=== PATIENT | female | born 1995 | race Two or more races ===

== ENCOUNTER 2021-12-28 03:12 | Emergency (ER) | payer OTHER ==
[2021-12-28 03:19] VITALS: RESP 18
--- NOTE | 2021-12-28 03:27 | ED ---
Overdose HPI - General Chief Complaint: Overdose Stated Complaint: Overdose Time Seen by Provider: 12/28/21 03:25 Source: patient, EMS, RN notes reviewed, old records reviewed Mode of arrival: EMS Limitations: no limitations - History of Present Illness Initial Comments: This is a 18-year-old female for accidental drug overdose. Heroin. Patient responded to Narcan from boyfriend. Patient currently a little bit nauseous little bit anxious otherwise feeling well. No medical history takes no medications MD Complaint: accidental overdose -: minutes(s) Intent: other (Wanted to get high) How Overdose Was Discovered: family/friend present at time, called 911 Context: Intentional Overdose: drug/ETOH problems Context: Accidental Overdose: wanted to get high Associated Symptoms: other (none) Treatments Prior to Arrival: none Review of Systems ROS Statement: Those systems with pertinent positive or pertinent negative responses have been documented in the HPI. ROS Other: All systems not noted in ROS Statement are negative. Past Medical History Past Medical History: No Reported History Additional Past Surgical History / Comment(s): Right foot surgery. Past Psychological History: Anxiety, Bipolar, Depression Smoking Status: Current every day smoker Past Alcohol Use History: Occasional Past Drug Use History: Cocaine, Heroin, IV Drug Use, Marijuana General Exam General appearance: alert, in no apparent distress, anxious Head exam: Present: atraumatic, normocephalic, normal inspection Eye exam: Present: normal appearance, PERRL, EOMI. Absent: scleral icterus, conjunctival injection, periorbital swelling ENT exam: Present: normal exam, mucous membranes moist Neck exam: Present: normal inspection. Absent: tenderness, meningismus, lymphadenopathy Respiratory exam: Present: normal lung sounds bilaterally. Absent: respiratory distress, wheezes, rales, rhonchi, stridor Cardiovascular Exam: Present: normal rhythm, tachycardia, normal heart sounds. Absent: systolic murmur, diastolic murmur, rubs, gallop, clicks GI/Abdominal exam: Present: soft, normal bowel sounds. Absent: distended, ten derness, guarding, rebound, rigid Extremities exam: Present: normal inspection, full ROM, normal capillary refill. Absent: tenderness, pedal edema, joint swelling, calf tenderness Back exam: Present: normal inspection Neurological exam: Present: alert, oriented X3, CN II-XII intact Psychiatric exam: Present: normal affect, normal mood Skin exam: Present: warm, dry, intact, normal color. Absent: rash Course Vital Signs 12/28/21 03:13 Temperature 98.9 F Pulse Rate 117 H Respiratory 18 Rate Blood Pressure 109/87 O2 Sat by Pulse 100 Oximetry - Reevaluation(s) Reevaluation #1: 12/28/21 04:38 Medical record is reviewed Reevaluation #2: 12/28/21 04:38 Patient without significant current complaint Reevaluation #3: 12/28/21 04:38 Patient informed results and risks of using heroin, questions answered Medical Decision Making - Medical Decision Making 26 female to the emergency department for alleged overdose requiring Narcan. Also from EMS. Patient awake and alert throughout ER stay can be discharged home Disposition Clinical Impression: Accidental drug overdose Disposition: HOME SELF-CARE Condition: Fair Instructions (If sedation given, give patient instructions): Adult Overdose (ED) Is patient prescribed a controlled substance at d/c from ED?: No Referrals: None,Stated [Primary Care Provider] - 1-2 days
[2021-12-28 11:34] VITALS: BP 117/78; PULSE 93; TEMP 98.2
== END 2021-12-28 11:35 | disposition home or self-care (01) ==
LOC: EC 03:12
DX: T40.1X1A Poisoning by heroin, accidental (unintentional), initial encounter (principal); F31.9 Bipolar disorder, unspecified; F41.9 Anxiety disorder, unspecified; F17.200 Nicotine dependence, unspecified, uncomplicated; F12.90 Cannabis use, unspecified, uncomplicated
CPT/HCPCS: 99284

== ENCOUNTER → 2022-04-13 | Outpatient (CLI) | payer OTHER ==
--- NOTE | 2022-04-13 13:56 | US ---
EXAMINATION TYPE: Transabdominal DATE OF EXAM: 04/13/2022 12:39 PM COMPARISON: NONE CLINICAL HISTORY: Confirm dates O36.80X0. confirm dates EXAM PERFORMED: Transabdominal (TA) EXAM MEASUREMENTS: GESTATIONAL AGE / DATING Physician Established: Not yet established Dates by LMP: LMP unknown Dates by First Scan: No previous this is first scan Dates by Current Scan for: (14 weeks/2 days) EDC: 10/10/2022 MATERNAL ANATOMY Uterus: 14.3 x 8.5 x 10.5 cm Right Ovary: obscured by bowel gas Left Ovary: obscured by bowel gas Post CDS / Adnexa: wnl Presence of free fluid: no Presence of corpus luteal cyst: no Presence of subchorionic bleed: no GESTATION / SURVEY CRL: 8.4 cm (14 weeks/2 days) Heart Rate: 146 bpm Rhythm: Normal IUP: Viable IUP Beta HcG (if available): Not available at this time Heterogeneous anteverted uterus. Single live intrauterine gestation as gestational sac and pole are present. No yolk sac. No free fluid. Neither ovary is seen. No suspicious adnexal masses are noted. IMPRESSION: Single live intrauterine gestation. Mean crown-rump length 8.4 cm corresponding to 14 wee k 2 day old fetus.
== END | disposition home or self-care (01) ==
LOC: RADUSWWP 12:03
PROVIDERS: ATTEND Obstetrics & Gynecology
DX: O36.80X0 Pregnancy with inconclusive fetal viability, not applicable or unspecified (principal); Z3A.14 14 weeks gestation of pregnancy
CPT/HCPCS: 76801

== ENCOUNTER 2022-10-13 06:00 | Inpatient (IN) | payer OTHER ==
[2022-10-13] MEDS ORDERED: LIDOCAINE 0.5% (PF) 5 MG/ML (50 ML SDV) SQ PRN (06:17)
[2022-10-13] MEDS ORDERED: TERBUTALINE 1 MG/ML VIAL SQ PRN (06:17)
[2022-10-13] MEDS ORDERED: OXYTOCIN 30 UNITS/500 ML NS 30 UNIT in SALINE 1 500ML.BAG IV SCH ×2 (06:30→17:45)
[2022-10-13] MEDS: LACTATED RINGERS 1,000 ML IV SCH ×3 (06:48→14:07)
[2022-10-13 07:11] LABS: Basophils # (A) 0.1 k/uL (0-0.2); Basophils % (A) 1 %; Eosinophils # (A) 0.1 k/uL (0-0.7); Eosinophils % (A) 1 %; HCT 33.7 % (34.0-46.0); HGB 11.6 gm/dL (11.4-16.0); Lymphocytes # (A) 1.8 k/uL (1.0-4.8); Lymphocytes % (A) 19 %; MCHC 34.3 g/dL (31.0-37.0); MCV 93.2 fL (80.0-100.0); Mean Platelet Volume 9.4; Monocytes # (A) 0.5 k/uL (0-1.0); Monocytes % (A) 5 %; Neutrophils # (A) 7.3 k/uL (1.3-7.7); Neutrophils % (A) 74 %; Platelet Count 172 k/uL (150-450); RBC 3.62 m/uL (3.80-5.40); RDW 13.1 % (11.5-15.5); WBC 9.8 k/uL (3.8-10.6)
[2022-10-13 07:31] LABS: Amphetamine Screen,Urine Not Detected (NotDetected); Barbiturate Screen,Urine Not Detected (NotDetected); Benzodiazepines Screen,Urine Not Detected (NotDetected); Cocaine Screen,Urine Not Detected (NotDetected); Methadone Screen, Urine Not Detected (NotDetected); Opiate Screen,Urine Not Detected (NotDetected); Oxycodone Screen, Urine Not Detected (NotDetected); Phencyclidine Screen,Urine Not Detected (NotDetected); Tricyclic Antidepressant,Urine Not Detected (NotDetected); Urn Cannabinoid Scrn Not Detected (NotDetected)
[2022-10-13] MEDS ORDERED: fentaNYL (PF) 50 MCG/ML 5 ML AMP ONE (13:46)
[2022-10-13] MEDS ORDERED: SODIUM CHLORIDE 0.9% 100 ML BAG ONE (13:46)
[2022-10-13] MEDS ORDERED: ROPIVACAINE 5 MG/ML 20 ML AMPULE ONE (13:46)
[2022-10-13] MEDS ORDERED: METHYLERGONOVINE 0.2 MG/ML 1 ML AMP IM ONE (17:20)
--- NOTE | 2022-10-13 17:39 | P.HPOB ---
History of Present Illness H&P Date: 10/13/22 Chief Complaint: induction of labor 26 year old presents at 40 weeks 3 days for induction of labor. Her cervix is 2/80/-2 and she is praneeth irregularly. heart tones 135 with moderate variability and reactive. Review of Systems All systems: negative Constitutional: Denies chills, Denies fever Eyes: denies blurred vision, denies pain Ears, nose, mouth and throat: Denies headache, Denies sore throat Cardiovascular: Denies chest pain, Denies shortness of breath Respiratory: Denies cough Gastrointestinal: Denies abdominal pain, Denies diarrhea, Denies nausea, Denies vomiting Genitourinary: Denies dysuria, Denies hematuria Musculoskeletal: Denies myalgias Integumentary: Denies pruritus, Denies rash Neurological: Denies numbness, Denies weakness Psychiatric: Denies anxiety, Denies depression Endocrine: Denies fatigue, Denies weight change Past Medical History Past Medical History: No Reported History History of Any Multi-Drug Resistant Organisms: None Reported Additional Past Surgical History / Comment(s): Right foot surgery, right hip, bone marrow transplant, endometri-surgery Past Anesthesia/Blood Transfusion Reactions: No Reported Reaction Smoking Status: Current every day smoker Past Alcohol Use History: Occasional Past Drug Use History: Cocaine, Heroin, IV Drug Use, Marijuana Medications and Allergies Home Medications Medication Instructions Recorded Confirmed Type Docusate [Colace] 1 tab PO BID 10/13/22 10/13/22 History Vit No.179/Iron/Folic 1 tab PO DAILY 10/13/22 10/13/22 History [ Tablet] buprenorphine HCL [Subutex] 10/13/22 History valACYclovir HCL [Valtrex] 1 tab PO BID 10/13/22 10/13/22 History Allergies Allergy/AdvReac Type Severity Reaction Status Date / Time Iodinated Contrast Media Allergy See Verified 12/28/21 08:29 comments surgical glue Allergy Rash/Hives Uncoded 10/13/22 06:51 Exam Osteopathic Statement: *. No significant issues noted on an osteopathic structural exam other than those noted in the History and Physical/Consult. Vital Signs Temp Pulse Resp BP Pulse Ox 10/13/22 06:15 97.9 F 98 16 128/85 97 Intake and Output 10/13/22 10/13/22 10/13/22 06:59 14:59 22:59 Intake Total 1000 Output Total 800 Balance 1000 -800 Intake: IV 1000 Output: Urine 800 Straight 800 Other: # Voids 3 Weight 83.915 kg Heart: Regular rate and rhythm Lungs: Clear to auscultation bilaterally Abdomen: Soft, nontender Extremities: Negative Homans sign Results Result Diagrams: 10/13/22 06:20 Abnormal Lab Results - Last 24 Hours (Table) 10/13/22 Range/Units 06:20 RBC 3.62 L (3.80-5.40) m/uL Hct 33.7 L (34.0-46.0) % Assessment and Plan (1) Encounter for induction of labor Current Visit: Yes Status: Acute Code(s): Z34.90 - ENCNTR FOR SUPRVSN OF NORMAL , UNSP, UNSP TRIMESTER SNOMED Code(s): 752187495 (2) complicated by subutex maintenance, antepartum Current Visit: Yes Status: Acute Code(s): O99.320 - DRUG USE COMPLICATING , UNSPECIFIED TRIMESTER; F11.20 - OPIOID DEPENDENCE, UNCOMPLICATED SNOMED Code(s): 03297430 Plan: 1. Induction of labor with amniotomy and Pitocin 2. Anticipate normal vaginal delivery
[2022-10-13] MEDS ORDERED: HYDROCORTISONE 2.5% RECTAL CREAM 30 GM TUBE RECTAL PRN (17:42)
[2022-10-13] MEDS ORDERED: LANOLIN CREAM 5 GM TUBE TOPICAL PRN (17:42)
[2022-10-13] MEDS ORDERED: diphenhydrAMINE 50 MG/ML 1 ML VIAL IVP PRN ×2 (17:42)
[2022-10-13] MEDS ORDERED: SIMETHICONE 80 MG CHEWABLE PO PRN (17:42)
[2022-10-13] MEDS ORDERED: diphenhydrAMINE 50 MG CAP PO PRN (17:42)
[2022-10-13] MEDS ORDERED: ZOLPIDEM 5 MG TAB PO PRN (17:42)
[2022-10-13] MEDS ORDERED: BENZOCAINE/MENTHOL SPRAY 1 GM/SPRAY AEROSOL TOPICAL PRN (17:42)
[2022-10-13] MEDS ORDERED: diphenhydrAMINE 25 MG CAP PO PRN (17:42)
--- NOTE | 2022-10-13 17:42 | P.PROBDLV ---
Vaginal Delivery Note - . Vaginal Delivery Note: 26 year old presents at 40 weeks 3 days for induction of labor. Her cervix is 2/80/-2 and she is praneeth irregularly. heart tones 135 with moderate variability and reactive. Pitocin was started and amniotomy performed at 7:15 AM and clear fluid noted. She was too uncomfortable and did use some nitrous for short period time. She then got an epidural. Her cervix is completely dilated by 1711. She pushed, delivered a viable female infant over intact perineum under epidural anesthesia at 1716. Head delivered OA, nuchal cord 1 easily reduced, anterior shoulder delivered gentle downward guidance of the posterior shoulder and rest of body. Nose and mouth bulb suctioned, cord clamped and cut, infant placed mother's abdomen. Apgars 9, 9, weight 7 lbs. 8 oz. Placenta delivered spontaneously, intact with three-vessel cord at 1718. Vagina, cervix, perineum inspected. First-degree midline laceration and bilateral labial lacerations were repaired with 3-0 Vicryl. Patient started to have some uterine atony so uterine massage was performed and Pitocin had Dimas been added to the IV, 0.2 of Methergine was given IM. The stop the bleeding and controlled the atony well. EBL 300 mL Mother and baby in stable condition.
[2022-10-13] MEDS: IBUPROFEN 600 MG TAB PO PRN (18:00)
[2022-10-13] MEDS: ACETAMINOPHEN TAB 325 MG TAB PO PRN (19:28)
[2022-10-14] MEDS: IBUPROFEN 600 MG TAB PO PRN ×4 (00:34→23:25)
[2022-10-14 08:00] LABS: Basophils % (A) 0 %; Eosinophils # (A) 0.1 k/uL (0-0.7); Eosinophils % (A) 1 %; HCT 31.2 % (34.0-46.0); HGB 10.5 gm/dL (11.4-16.0); Lymphocytes # (A) 2.5 k/uL (1.0-4.8); Lymphocytes % (A) 18 %; MCH 31.9 pg (25.0-35.0); MCHC 33.7 g/dL (31.0-37.0); MCV 94.9 fL (80.0-100.0); Mean Platelet Volume 9.7; Monocytes # (A) 0.6 k/uL (0-1.0); Monocytes % (A) 5 %; Neutrophils # (A) 10.2 k/uL (1.3-7.7); Neutrophils % (A) 75 %; Platelet Count 176 k/uL (150-450); RBC 3.29 m/uL (3.80-5.40); RDW 13.1 % (11.5-15.5); WBC 13.5 k/uL (3.8-10.6)
[2022-10-14] MEDS: SENNOSIDES-DOCUSATE SODIUM 1 EACH TAB PO SCH ×3 (08:22→19:59)
[2022-10-14] MEDS: ACETAMINOPHEN TAB 325 MG TAB PO PRN ×2 (08:22→19:57)
--- NOTE | 2022-10-14 09:46 | P.PNOBGVD ---
Subjective - Subjective Principal diagnosis: Status post normal vaginal delivery day #1 Interval history: Patient seen and examined. Denies nausea, vomiting, chest pain, shortness of breath or any calf pain. Patient reports: Reports appetite normal, Reports voiding normally, Reports pain well controlled, Reports ambulating normally [place]: doing well Objective - Latest Vital Signs Latest vital signs: Vital Signs Temp Pulse Resp BP Pulse Ox 10/14/22 08:25 97.8 F 58 L 14 126/75 10/14/22 04:00 98 F 90 16 100/67 99 10/14/22 00:00 98.4 F 94 16 122/81 97 10/13/22 20:00 98.3 F 103 H 16 126/80 98 10/13/22 19:30 98.3 F 104 H 16 126/81 97 10/13/22 19:00 98 17 128/78 10/13/22 18:30 100 17 131/76 10/13/22 18:15 86 17 128/65 10/13/22 18:00 96 17 133/66 10/13/22 17:45 98.6 F 103 H 17 144/79 10/13/22 17:30 88 17 122/74 Intake and Output 10/13/22 10/14/22 10/14/22 22:59 06:59 14:59 Intake Total 1020.6 600 Output Total 1295 Balance -274.4 600 Intake: IV 1000 Intake, IV Titration 20.6 Amount Oxytocin 30 Units/500 ml 20.6 Ns 30 unit In Saline 1 500ml.bag @ Per Protocol IV .Q0M [facility] Rx#:[id number] Oral 600 Output: Urine 1100 Straight 800 Output, Quantitative 195 Blood Loss Other: # Voids 1 - Exam Lungs: bilateral: normal Chest: Normal S1, Normal S2 Extremities: Present: normal Abdomen: Present: normal appearance, soft Uterus: Present: normal, firm - Labs Labs: Abnormal Lab Results - Last 24 Hours (Table) 10/14/22 Range/Units 07:34 WBC 13.5 H (3.8-10.6) k/uL RBC 3.29 L (3.80-5.40) m/uL Hgb 10.5 L (11.4-16.0) gm/dL Hct 31.2 L (34.0-46.0) % Neutrophils # 10.2 H (1.3-7.7) k/uL Assessment and Plan (1) Encounter for induction of labor Current Visit: Yes Status: Resolved Code(s): Z34.90 - ENCNTR FOR SUPRVSN OF NORMAL , UNSP, UNSP TRIMESTER SNOMED Code(s): 965776112 (2) complicated by subutex maintenance, antepartum Current Visit: Yes Status: Resolved Code(s): O99.320 - DRUG USE COMPLICATING , UNSPECIFIED TRIMESTER; F11.20 - OPIOID DEPENDENCE, UNCOMPLICATED SNOMED Code(s): 03915410 (3) Normal vaginal delivery Current Visit: Yes Status: Acute Code(s): O80 - ENCOUNTER FOR FULL-TERM UNCOMPLICATED DELIVERY SNOMED Code(s): 31527363 Plan: 1. Continue care
[2022-10-14] MEDS: LACTATED RINGERS 1,000 ML IV SCH (20:00)
[2022-10-15] MEDS: LACTATED RINGERS 1,000 ML IV SCH ×2 (05:55→10:42)
[2022-10-15] MEDS: IBUPROFEN 600 MG TAB PO PRN (07:59)
[2022-10-15] MEDS: SENNOSIDES-DOCUSATE SODIUM 1 EACH TAB PO SCH (07:59)
--- NOTE | 2022-10-15 09:07 | P.DS ---
Providers Date of admission: 10/13/22 06:09 Expected date of discharge: 10/15/22 Attending physician: Alina Hannah Primary care physician: Stated None Hospital Course: This is a 26-year-old female 1 para 0 at 40-3/7 weeks who presented for induction of labor. Please see dictated history and physical for details of patient's admission. She delivered vaginally a viable female infant on 2021 with scores of 9 at 1 minute and 9 at 5 minutes and infant weight of 7 lbs. 8 oz. Her course has been essentially uncomplicated. She does state that she has a history of constipation and has still not had a bowel movement yet. She is taking stool softeners. Pain is fairly well controlled. Vital signs are stable. Abdomen is soft with fundus firm and nontender. Extremities show negative Homans. Impression is status post vaginal delivery day #2. Plan is to discharge home today. Routine instructions are given. She is advised to follow up with Dr. Hannah in the office in 6 weeks. She is advised to call the office if she has any further questions or concerns prior to her appointment time. She will be given a prescription for ibuprofen. Procedures: Oxytocin induction of labor Spontaneous vaginal delivery of a viable female infant on 10/13/2022 Patient Condition at Discharge: Stable Plan - Discharge Summary New Discharge Prescriptions: New Ibuprofen [Motrin] 600 mg PO Q6HR PRN #30 tab PRN Reason: Mild Pain (Scale 1 To 3) Sennosides-Docusate Sodium [Senokot-S] 2 each PO BID@0800,2000 #20 tab No Action Vit No.179/Iron/Folic [ Tablet] 1 tab PO DAILY valACYclovir HCL [Valtrex] 1 tab PO BID Docusate [Colace] 1 tab PO BID buprenorphine HCL [Subutex] Discharge Medication List Docusate [Colace] 1 tab PO BID 10/13/22 [History] Vit No.179/Iron/Folic [ Tablet] 1 tab PO DAILY 10/13/22 [History] buprenorphine HCL [Subutex] 10/13/22 [History] valACYclovir HCL [Valtrex] 1 tab PO BID 10/13/22 [History] Ibuprofen [Motrin] 600 mg PO Q6HR PRN #30 tab 10/14/22 [Rx] Sennosides-Docusate Sodium [Senokot-S] 2 each PO BID@0800,1999 #20 tab 10/15/22 [Rx] Follow up Appointment(s)/Referral(s): Alina Hannah DO [Doctor of Osteopathic Medicine] - 11/30/22 11:15 am Activity/Diet/Wound Care/Special Instructions: Instructions 1. Do not begin any exercise program for 3 weeks. 2. Do not resume sexual relations for 3 weeks or longer if uncomfortable. 3. You may take tub baths or showers at any time. 4. You may use tampons if desired after 3 weeks. 5. Keep the area of episiotomy (stitches) clean and dry. 6. If you are not nursing, wear a good fitting, supportive bra during the day and limit fluid intake for at least 1 week to prevent breast engorgement. 7. Call the office, [phone], within the next week to make appointment for your 6 week checkup if it has not already been made. 8. Report any of the following occurrences to the doctor promptly: a. Heavy, excessive bleeding b. Chills, fever c. Burning or frequency of urination d. Pain or redness and breasts if nursing e. Increasing pain or swelling in episiotomy (stitches). In addition to the above instructions, the following additional should be followed: 1. No heavy lifting or straining (exercising) until after 6 week checkup. 2. Keep abdominal incision clean and dry: You may wear a dressing if more comfortable. 3. Make office appointment for 10 days after going home or as instructed by her doctor. Discharge Disposition: HOME SELF-CARE
[2022-10-15 10:41] VITALS: BP 104/67; PULSE 82; RESP 18; TEMP 98
[2022-10-15] MEDS: ACETAMINOPHEN TAB 325 MG TAB PO PRN (11:10)
== END 2022-10-15 11:11 | disposition home or self-care (01) | DRG 806 ==
LOC: 4FBP 06:09
PROVIDERS: ADMIT Obstetrics & Gynecology; ATTEND Obstetrics & Gynecology
PROC: 10E0XZZ Delivery of Products of Conception, External Approach (ICD-10-PCS; principal; 2022-10-13)
PROC: 0HQ9XZZ Repair Perineum Skin, External Approach (ICD-10-PCS; 2022-10-13)
DX: O48.0 Post-term pregnancy (principal); F11.20 Opioid dependence, uncomplicated; Z37.0 Single live birth; O99.324 Drug use complicating childbirth; F17.200 Nicotine dependence, unspecified, uncomplicated; O62.2 Other uterine inertia; O69.81X0 Labor and delivery complicated by cord around neck, without compression, not applicable or unspecified; O70.0 First degree perineal laceration during delivery; O99.334 Smoking (tobacco) complicating childbirth; Z3A.40 40 weeks gestation of pregnancy
CPT/HCPCS: 80306; 80348; 85025; 86850; 86900; 86901; 88307